=== PATIENT | female | born 1995 | race Caucasian/White ===

== ENCOUNTER 2017-03-30 09:36 | Emergency (ER) | payer OTHER ==
[~2017-03-30] VITALS: Ht 154.9 cm; Wt 63.5 kg
[2017-03-30] MEDS ORDERED: SYNTHROID75 MCG PO (10:32)
[2017-03-30] MEDS ORDERED: PRENATE ELITE1 EACH PO (10:33)
[2017-03-30 10:50] LABS: HEMATOCRIT 33.7 % (37.0-47.0); HEMOGLOBIN 11.7 gm/dL (12.0-15.0); MCH 32.9 pg (26.0-34.0); MCHC 34.8 g/dL (28.0-37.0); MCV 94.5 fL (80.0-100.0); PLATELET COUNT 171 thou/uL (150-400); RBC 3.57 mil/uL (4.20-5.00); RDW 11.8 % (10.5-14.5); WBC 12.2 thou/uL (4.0-11.0)
[2017-03-30 10:51] LABS: MANUAL DIFF YES
[2017-03-30 10:58] LABS: CALCIUM 8.9 mg/dL (8.5-10.1); CREATININE 0.6 mg/dL (0.6-1.0); POTASSIUM 3.6 mmol/L (3.5-5.1)
[2017-03-30 11:12] LABS: ABSOLUTE NEUTROPHILS 10.5 thou/uL (1.4-8.2); TOTAL CELL COUNT 100
[2017-03-30 11:13] LABS: ANISOCYTOSIS SLIGHT
[2017-03-30 13:13] VITALS: BP 101/58
== END 2017-03-30 13:13 | disposition home or self-care (01) ==
LOC: ER 09:36
PROVIDERS: Emergency Medicine
DX: O26.52 Maternal hypotension syndrome, second trimester (principal); O46.8X2 Other antepartum hemorrhage, second trimester; Z3A.21 21 weeks gestation of pregnancy; Z87.891 Personal history of nicotine dependence

== ENCOUNTER 2018-10-05 13:30 | Emergency (ER) | payer OTHER ==
[~2018-10-05] VITALS: Ht 154.9 cm; Wt 68.0 kg
[~2018-10-05 13:30] MED LIST: PRENATE ELITE1 EACH PO; SYNTHROID75 MCG PO
[2018-10-05 13:46] LABS: URINE BILIRUBIN NEGATIVE (Negative); URINE BLOOD NEGATIVE (Negative); URINE CLARITY CLEAR; URINE COLOR YELLOW; URINE GLUCOSE-RANDOM* NEGATIVE (Negative); URINE KETONES TRACE (Negative); URINE LEUKOCYTES-REFLEX TRACE (Negative); URINE NITRITE-REFLEX NEGATIVE (Negative); URINE PROTEIN (DIPSTICK) NEGATIVE (Negative); URINE SPECIFIC GRAVITY <= 1.005 (1.005-1.035); URINE UROBILINOGEN 0.2 E.U./dl (0.2-1.0)
[2018-10-05 14:46] LABS: ABSOLUTE NEUTROPHILS 8.2 thou/uL (1.4-8.2); BASOPHILS 0.2 % (0.0-2.0); EOSINOPHILS 0.2 % (0.0-3.0); HEMATOCRIT 38.3 % (37.0-47.0); HEMOGLOBIN 13.1 gm/dL (12.0-15.0); MCH 31.6 pg (26.0-34.0); MCHC 34.2 g/dL (28.0-37.0); MCV 92.2 fL (80.0-100.0); MONOCYTES 4.8 % (1.0-8.0); PLATELET COUNT 203 thou/uL (150-400); POLYS 82.8 % (36.0-66.0); RBC 4.15 mil/uL (4.20-5.00); RDW 12.1 % (10.5-14.5); WBC 9.9 thou/uL (4.0-11.0)
[2018-10-05 14:48] LABS: CALCIUM 9.7 mg/dL (8.5-10.1); CREATININE 0.9 mg/dL (0.6-1.0); POTASSIUM 3.5 mmol/L (3.5-5.1)
[2018-10-05 14:54] LABS: ALBUMIN 4.4 g/dL (3.4-5.0); TOTAL BILIRUBIN 0.5 mg/dL (<0.1-1.0); TOTAL PROTEIN 7.9 g/dL (6.4-8.2)
[2018-10-05] MEDS ORDERED: CARAFATE 1 GM TA1 G1 PO (16:56)
[2018-10-05] MEDS ORDERED: PEPCID40 MG PO (16:56)
[2018-10-05] MEDS ORDERED: ONDANSETRON HCL4 M2 PO (18:09)
[2018-10-05 18:20] VITALS: BP 109/82
== END 2018-10-05 18:05 | disposition home or self-care (01) ==
LOC: ER 13:30
PROVIDERS: Emergency Medicine; Physician Assistant
DX: K29.70 Gastritis, unspecified, without bleeding (principal); E03.9 Hypothyroidism, unspecified; Z87.891 Personal history of nicotine dependence